=== PATIENT | male | born 1975 | race Caucasian/White ===

== ENCOUNTER 2016-09-14 17:45 | Emergency (ER) | payer BC, OTHER ==
[2016-09-14] MEDS ORDERED: fentaNYL 100 MCG/2 ML SDV IVPUSH ONE ×2 (18:36→18:57)
--- NOTE | 2016-09-14 18:36 | EDM.PDOC ---
ED HPI GENERAL MEDICAL PROBLEM - General Chief Complaint: Upper Extremity Injury/Pain Stated Complaint: dislocated shoulder Time Seen by Provider: 09/14/16 18:15 Source of Information: Reports: Patient History Limitations: Reports: No Limitations - History of Present Illness INITIAL COMMENTS - FREE TEXT/NARRATIVE: States that he was walking and the grass was wet and a bull was coming up behind him and he grabbed for the gate and he slipped and his hand held onto the gate. [place] his left shoulder "dislocate". Severe pain in the shoulder area and obvious deformity noted. Pt is diaphoretic with pain. Denies any other injury. No numbness or tingling noted distally. Onset: Sudden Location: Reports: Upper Extremity, Left Quality: Reports: Sharp, Throbbing Severity: Severe Left Shoulder Pain Score (Numeric/FACES): 10 - Related Data Allergies Allergy/AdvReac Type Severity Reaction Status Date / Time No Known Allergies Allergy Verified 09/14/16 17:48 Home Meds: Home Meds . [No Known Home Meds] 09/23/13 [History] Past Medical History - Past Health History Medical/Surgical History: Denies Medical/Surgical History Social & Family History - Tobacco Use Smoking Status *Q: Never Smoker Second Hand Smoke Exposure: No - Alcohol Use Days Per Week of Alcohol Use: 0 - Recreational Drug Use Recreational Drug Use: Yes Review of Systems - Review of Systems Review Of Systems: See Below Eyes: Reports: No Symptoms Ears: Reports: No Symptoms Nose: Reports: No Symptoms Respiratory: Reports: No Symptoms Cardiovascular: Reports: No Symptoms Musculoskeletal: Reports: Shoulder Pain Skin: Reports: No Symptoms Neurological: Reports: No Symptoms ED EXAM, GENERAL - Physical Exam Exam: See Below Exam Limited By: No Limitations General Appearance: Alert, Severe Distress Neck: Normal Inspection, Supple, Non-Tender, Full Range of Motion Respiratory/Chest: No Respiratory Distress, Lungs Clear, Normal Breath Sounds Cardiovascular: Normal Peripheral Pulses, Regular Rate, Rhythm, No Edema GI/Abdominal: Normal Bowel Sounds, Soft Neurological: Alert, Oriented Skin Exam: Warm, Intact, Diaphoretic, Other (pale) Course - Vital Signs Last Recorded V/S: Last Vital Signs Temp 97.8 F 09/14/16 17:48 Pulse 77 09/14/16 17:48 Resp 20 09/14/16 17:48 BP 140/78 09/14/16 17:48 Pulse Ox 97 09/14/16 17:48 - Orders/Labs/Meds Orders: Active Orders 24 hr Category Date Time Status Shoulder Comp Lt [CR] Stat Exams 09/14/16 18:11 Ordered - Re-Assessments/Exams Free Text/Narrative Re-Assessment/Exam: 09/14/16 18:[address] Dey- ortho in [place] and he is willing to tae pt in transfer to evaluate and treat the shoulder dislocation. Free Text/Narrative Re-Assessment/Exam: 09/14/16 18:41 Discussed with pt and friend that he needs to go to [place] to have this reduced. Will premedicate him and then he requests to go by private car. Risks of him going by private car were discussed and pt voices understanding that he would not have pain meds available enroute but would be able to get one before he leaves. He understands that the risk of not going is increase in pain and not being able to go it reduced here. He requests not to go by ambulance. Risks of going by private car also includes potential for accidents and increase in pain. Risks of staying also includes uncontrolled pain. Benefits of going to [place] includes having specialist and anesthesia that are able to reduce the dislocation, and provide pain relief. He voices under standing and chooses to go by private vehicle. Departure - Departure Time of Disposition: 18:46 Disposition: DC/Tfer to [facility] Condition: Good Clinical Impression: Dislocation of left shoulder joint Qualifiers: Encounter type: initial encounter Qualified Code(s): S43.005A - Unspecified dislocation of left shoulder joint, initial encounter - Discharge Information Forms: ED Department Discharge Additional Instructions: Go to the ER at [facility] to see Dr. Dey who is the accepting MD. DO not eat or drink anything before seen there Keep arm in position of comfort - Problem List & Annotations (1) Dislocation of left shoulder joint SNOMED Code(s): 358429039 Code(s): S43.005A - UNSPECIFIED DISLOCATION OF LEFT SHOULDER JOINT, INIT ENCNTR Status: Acute Priority: High Current Visit: Yes - Problem List Review Problem List Initiated/Reviewed/Updated: Yes - My Orders Last 24 Hours: My Active Orders 09/14/16 18:11 Shoulder Comp Lt [CR] Stat - Assessment/Plan Last 24 Hours: My Active Orders 09/14/16 18:11 Shoulder Comp Lt [CR] Stat
[2016-09-14 18:50] VITALS: BP 153/94
== END 2016-09-14 19:05 | disposition critical access hospital (66) ==
LOC: CC.ED 17:45
DX: S43.005A Unspecified dislocation of left shoulder joint, initial encounter (principal); W18.49XA Other slipping, tripping and stumbling without falling, initial encounter
CPT/HCPCS: 73030; 96374; 96376; 99284; J3010

== ENCOUNTER 2023-01-02 05:16 | Emergency (ER) | payer MEDICAID ==
[2023-01-02 05:50] LABS: BASOPHILS ABSOLUTE AUTO 0.04 10^3/uL (0.00-0.50); BASOPHILS PERCENT AUTO 0.6 % (0-1); EOSINOPHILS ABSOLUTE AUTO 0.26 10^3/uL (0.00-1.50); EOSINOPHILS PERCENT AUTO 3.9 % (0-6); HEMATOCRIT 43.7 % (42.0-52.0); HEMOGLOBIN 15.4 g/dL (14.0-18.0); IMMATURE GRAN ABSOLUTE AUTO 0.01 10^3/uL (0.00-0.49); IMMATURE GRAN PERCENT AUTO 0.2 % (0.0-4.9); LYMPHOCYTES ABSOLUTE AUTO 1.62 10^3/uL (0.60-5.00); LYMPHOCYTES PERCENT AUTO 24.6 % (24-44); MEAN CORPUSCULAR HEMOGLOBIN 32.7 pg (27.0-32.0); MEAN CORPUSCULAR HGB CONC 35.2 g/dL (32.0-36.0); MEAN CORPUSCULAR VOLUME 92.8 fL (83.0-97.0); MONOCYTES PERCENT AUTO 7.6 % (0-10); NEUTROPHILS ABSOLUTE AUTO 4.16 x10^3/uL (1.80-8.00); NEUTROPHILS PERCENT AUTO 63.1 % (41-71); PLATELET COUNT,PLT 237 10^3/uL (150-400); RED BLOOD CELL COUNT 4.71 x10^6/uL (4.50-6.00); WHITE BLOOD CELL COUNT,WBC 6.6 10^3/uL (4.0-11.0)
[2023-01-02 06:06] LABS: ALBUMIN 3.7 g/dL (3.4-5.0); BILIRUBIN TOTAL 0.8 mg/dL (0.0-1.0); C-REACTIVE PROTEIN 0.5 mg/dL (<=0.30); CALCIUM 9.2 mg/dL (8.4-10.1); CREATININE 1.3 mg/dL (0.7-1.3); EST CRCL DRUG DOSING (CG) 77.93 mL/min; POTASSIUM,K 3.9 mEq/L (3.5-5.0); PROTEIN TOTAL,TP 6.9 g/dL (6.4-8.2)
[2023-01-02 06:09] LABS: HEMOGLOBIN A1C 8.6 % (4.8-5.6)
[2023-01-02] MEDS ORDERED: Aspirin 81 MG Tab.Chew PO ONE (06:15)
[2023-01-02] MEDS ORDERED: Nitroglycerin 0.4 MG Tab.SL SL PRN (06:16)
[2023-01-02] MEDS ORDERED: Heparin Sodium 5,000 Units/ML Vial IVPUSH ONE (06:27)
[2023-01-02] MEDS ORDERED: Heparin Sodium/0.45% NaCl 500 ML IV SCH (06:30)
[2023-01-02] MEDS ORDERED: Sodium Chloride 0.9% 1,000 ML ONE (06:31)
[2023-01-02] MEDS ORDERED: Sodium Chloride 0.9% 1,000 ML IV ONE (06:41)
[2023-01-02 08:36] VITALS: BP 135/85
[2023-01-02 09:07] VITALS: PULSE 77
== END 2023-01-02 09:00 ==
LOC: EDUNIT# → CC.ED 05:16
DX: I21.3 ST elevation (STEMI) myocardial infarction of unspecified site (principal); I10 Essential (primary) hypertension; E11.9 Type 2 diabetes mellitus without complications
CPT/HCPCS: 36415; 71046; 80053; 83036; 84484; 85025; 85379; 85730; 86140; 93005; 93010; 96365; 96366; 99284; 99285-25; A9270-GY; J1644; J7030